=== PATIENT | female | born 1985 | race African-American/Black ===

== ENCOUNTER 2024-11-18 18:08 | Emergency (ER) | payer MEDICAID ==
[~2024-11-18] VITALS: Ht 167.6 cm; Wt 110.0 kg
[~2024-11-18 18:08] MED LIST: ALBU2SYR24 PO; ALBU6.7H15 INH; IBUP-2030 MT; NITR-87 MT; TRAM50TA MT
[2024-11-18 18:17] VITALS: BP 122/77; PULSE 130; RESP 16; TEMP 37.1; O2SAT 99
== END 2024-11-18 19:08 | disposition home or self-care (01) ==
LOC: ER 18:16
DX: F41.0 Panic disorder [episodic paroxysmal anxiety] (principal); F43.0 Acute stress reaction; J45.909 Unspecified asthma, uncomplicated; I10 Essential (primary) hypertension; Z85.850 Personal history of malignant neoplasm of thyroid; Z88.0 Allergy status to penicillin; F10.90 Alcohol use, unspecified, uncomplicated; F12.90 Cannabis use, unspecified, uncomplicated; Z79.899 Other long term (current) drug therapy; Y90.9 Presence of alcohol in blood, level not specified
CPT/HCPCS: 99283

== ENCOUNTER 2025-01-02 13:28 | Emergency (ER) | payer MEDICAID ==
[2025-01-02] VITALS (7 sets, daily range): BP systolic 162; BP diastolic 98; PULSE 97–111; RESP 16–20; TEMP 36.6; O2SAT 98–100
[~2025-01-02] VITALS: Ht 149.9 cm; Wt 100.0 kg
[2025-01-02] MEDS: IPRATROPIUM BROMIDE (0.02%) 0.5MG/2.5ML NEB HHN SCH (14:14)
[2025-01-02] MEDS: ALBUTEROL (0.083%) 2.5MG/3ML NEB HHN SCH (14:15)
[2025-01-02] MEDS: METHYLPREDNISOLONE SOD SUCC 125MG/2ML (ACT-O-VIAL) IV ONE (14:21)
[2025-01-02] MEDS: MAGNESIUM 2 G PREMIX 50 ML IV ONE (14:22)
[2025-01-02 14:27] LABS: BASOPHILS % 0.6 % (0.0-2.0); EOSINOPHILS % 2.0 % (0.0-5.0); HEMATOCRIT. 37.8 % (36.0-48.0); HEMOGLOBIN. 12.0 g/dL (12.0-16.0); LYMPHOCYTES % 47.1 % (20.0-50.0); MEAN PLATELET VOLUME 8.1 fl (7.4-10.4); MONOCYTES % 9.1 % (2.0-8.0); NEUTROPHILS % 41.2 % (40.0-76.0); PLATELET 273 x1000/uL (130-400); RED BLOOD CELL COUNT 4.71 mill/uL (4.2-5.4); RED CELL DISTRIBUTION WIDTH 18.1 % (11.6-14.6)
[2025-01-02 14:42] LABS: HCG SCREEN NEGATIVE
[2025-01-02 15:49] LABS: INR 1.0
[2025-01-02 15:53] LABS: TROPONIN I HIGH SENSITIVITY < 4 ng/L (3.0-34)
[2025-01-02 15:54] LABS: CREATININE 0.7 mg/dL (0.6-1.0); UREA NITROGEN BLOOD 11 mg/dL (9-23)
[2025-01-02 15:56] LABS: ASPARTATE AMINOTRANSFERASE 29 IU/L (<34); BILIRUBIN DIRECT 0.1 mg/dL (<=3.0); BILIRUBIN TOTAL 0.3 mg/dL (0.1-1.0)
[2025-01-02 15:57] LABS: PROTEIN TOTAL 7.1 g/dL (6.0-8.3)
[2025-01-02 16:13] LABS: CLARITY URINE TURBID (CLEAR); COLOR URINE YELLOW (YELLOW)
[2025-01-02 16:22] LABS: GLUCOSE URINE NEGATIVE (NEGATIVE); KETONES URINE TRACE (NEGATIVE); LEUKOCYTE ESTERASE URINE NEGATIVE (NEGATIVE); NITRITE URINE NEGATIVE (NEGATIVE); OCCULT BLOOD URINE NEGATIVE (NEGATIVE); PH URINE 6.0 (4.5-8.0); PROTEIN URINE TRACE (NEGATIVE); SPECIFIC GRAVITY URINE >1.030 (1.005-1.030); UROBILINOGEN URINE 0.2 E.U./dL (0.2-1.0)
[2025-01-02 16:23] LABS: BACTERIA URINE NONE SEEN; RBC URINE NONE SEEN /hpf (0-2); SQUAMOUS EPITHELIAL CELL URINE RARE /lpf (RARE/1+); WBC URINE 0-2 /hpf (0-2)
[2025-01-02] MEDS: POTASSIUM CHLORIDE 20MEQ/PACKET PO NR (16:23)
[2025-01-02 16:24] LABS: AMORPHOUS SEDIMENT URINE 4+ /lpf
[2025-01-02] MEDS: SODIUM CHLORIDE 0.9% 1,000 ML IV ONE (20:44)
[2025-01-02] MEDS ORDERED: P20 MT (21:08)
== END 2025-01-02 22:38 | disposition home or self-care (01) ==
LOC: ER 13:50
DX: J45.901 Unspecified asthma with (acute) exacerbation (principal); E87.6 Hypokalemia; I10 Essential (primary) hypertension; F12.90 Cannabis use, unspecified, uncomplicated; Z88.0 Allergy status to penicillin; Z98.890 Other specified postprocedural states
CPT/HCPCS: 80076; 80048; 81003; 84703; 83880; 83690; 85025; 85610; 85730; 84484; 36415; 71045; 94640; 93005; 94070; 96361; 96365; 96375; 99291; J3475; J2919; Z7610 ×5; J7030; A4606

== ENCOUNTER 2025-03-27 16:18 | Emergency (ER) | payer MEDICAID ==
[~2025-03-27] VITALS: Ht 172.7 cm; Wt 80.0 kg
[~2025-03-27 16:18] MED LIST changes: +P20 MT
[2025-03-27 16:25] VITALS: O2SAT 100
[2025-03-27] MEDS: LORAZEPAM 1MG TABLET PO ONE (16:45)
[2025-03-27 17:33] VITALS: BP 148/90; PULSE 108; RESP 20; TEMP 37.1; O2SAT 100
[2025-03-27 19:49] LABS: BASOPHILS % 1.0 % (0.0-2.0); EOSINOPHILS % 1.2 % (0.0-5.0); HEMATOCRIT. 36.5 % (36.0-48.0); HEMOGLOBIN. 11.8 g/dL (12.0-16.0); LYMPHOCYTES % 34.8 % (20.0-50.0); MEAN PLATELET VOLUME 8.5 fl (7.4-10.4); MONOCYTES % 5.3 % (2.0-8.0); NEUTROPHILS % 57.7 % (40.0-76.0); PLATELET 276 x1000/uL (130-400); RED BLOOD CELL COUNT 4.37 mill/uL (4.2-5.4); RED CELL DISTRIBUTION WIDTH 17.0 % (11.6-14.6)
[2025-03-27 20:05] LABS: CREATININE 0.7 mg/dL (0.6-1.0); UREA NITROGEN BLOOD 11 mg/dL (9-23)
== END 2025-03-27 20:00 | disposition home or self-care (01) ==
LOC: ER 16:18
DX: R45.851 Suicidal ideations (principal); F10.129 Alcohol abuse with intoxication, unspecified; R45.88 Nonsuicidal self-harm; I10 Essential (primary) hypertension; J45.909 Unspecified asthma, uncomplicated; Z00.8 Encounter for other general examination; Z88.0 Allergy status to penicillin; Y90.9 Presence of alcohol in blood, level not specified
CPT/HCPCS: 36415; 80048; 80320; 85025; 99282; 99283; G0480